=== PATIENT | male | born 1940 | race Caucasian/White ===

== ENCOUNTER → 2024-05-23 10:08 | Outpatient (BNVA) | payer OTHER, SELFPAY | PROVIDERS: PCP Family Medicine; Referring Provider Nurse Practitioner Family; Visit Provider Dermatology | DX: L90.5 Scar conditions and fibrosis of skin (principal); L81.4 Other melanin hyperpigmentation; L73.8 Other specified follicular disorders; D48.5 Neoplasm of uncertain behavior of skin | CPT/HCPCS: 11102; 69100; 99203 ==

== ENCOUNTER → 2024-06-24 09:42 | Outpatient (BNVA) | payer OTHER, SELFPAY | PROVIDERS: PCP Family Medicine; Visit Provider Dermatology | DX: L82.1 Other seborrheic keratosis (principal); L28.0 Lichen simplex chronicus; C44.229 Squamous cell carcinoma of skin of left ear and external auricular canal; L57.0 Actinic keratosis | CPT/HCPCS: 13152; 17000; 17311; 99213 ==

== ENCOUNTER → 2024-10-30 13:35 | Outpatient (BNVA) | payer OTHER, SELFPAY | PROVIDERS: PCP Family Medicine; Visit Provider Nurse Practitioner Family | DX: L73.8 Other specified follicular disorders (principal); L81.4 Other melanin hyperpigmentation; L90.5 Scar conditions and fibrosis of skin; Z08 Encounter for follow-up examination after completed treatment for malignant neoplasm; Z85.828 Personal history of other malignant neoplasm of skin; D48.5 Neoplasm of uncertain behavior of skin | CPT/HCPCS: 11102; 99213 ==

== ENCOUNTER → 2024-12-23 14:41 | Outpatient (BNVA) | payer OTHER, SELFPAY | PROVIDERS: PCP Family Medicine; Visit Provider Nurse Practitioner Family | DX: L28.1 Prurigo nodularis (principal); L98.1 Factitial dermatitis; L28.0 Lichen simplex chronicus; R23.8 Other skin changes; R20.9 Unspecified disturbances of skin sensation | CPT/HCPCS: 99214 ==